=== PATIENT | female | born 1990 | race Caucasian/White ===

== ENCOUNTER 2017-02-26 02:24 | Outpatient (CLI) | payer MEDICAID ==
[2017-02-26 03:03] VITALS: BP 106/58
== END 2017-02-26 03:30 | disposition home or self-care (01) ==
LOC: LDOP 02:24
PROVIDERS: ATTEND Student in an Organized Health Care Education/Training Program
DX: O26.893 Other specified pregnancy related conditions, third trimester (principal); R10.10 Upper abdominal pain, unspecified; Z3A.30 30 weeks gestation of pregnancy
CPT/HCPCS: 59025; 99211; G0463